=== PATIENT | female | born 1960 | race Caucasian/White ===

== ENCOUNTER 2024-07-07 10:34 | Emergency (ER) | payer OTHER ==
[2024-07-07 10:44] VITALS: BP 138/85; PULSE 121; RESP 18; TEMP 97
--- NOTE | 2024-07-07 10:58 | ED ---
Fall HPI - General Chief Complaint: Fall Stated Complaint: ETOH/fall/L eye bruise Time Seen by Provider: 07/07/24 10:45 Source: patient, RN notes reviewed Mode of arrival: wheelchair Limitations: no limitations - History of Present Illness Initial Comments: This is a 63-year-old female who presents to the emergency department for a fall. Patient states that she consumes about a pint of vodka daily. Most recently consumed alcohol this morning. States that yesterday she fell and landed face first on the ground, causing a black eye on the left. She went to check into rehab at [place] today, however they would not let her check-in until she was medically cleared from the fall. Denies any loss of consciousness during the fall. Not taking any blood thinners. She is also concerned about her psoriasis on the bilateral upper and lower extremities which are both itchy and painful. Not currently taking any medication for it. MD Complaint: fall - Related Data Previous Rx's Medication Instructions Recorded Amoxic-Pot Clav 875-125Mg 1 tab PO Q12HR 7 Days #14 tab 07/07/24 [Augmentin 875-125] Amoxic-Pot Clav 875-125Mg 1 tab PO Q12HR 7 Days #14 tab 07/07/24 [Augmentin 875-125] Allergies Allergy/AdvReac Type Severity Reaction Status Date / Time No Known Allergies Allergy Verified 07/07/24 10:38 Review of Systems ROS Statement: Those systems with pertinent positive or pertinent negative responses have been documented in the HPI. ROS Other: All systems not noted in ROS Statement are negative. Past Medical History Past Medical History: COPD Additional Past Medical History / Comment(s): alcoholism History of Any Multi-Drug Resistant Organisms: None Reported Past Surgical History: Section, Hysterectomy Past Psychological History: Anxiety Smoking Status: Former smoker Past Alcohol Use History: Abuse, Daily Past Drug Use History: None Reported General Exam Limitations: no limitations General appearance: alert, in no apparent distress Eye exam: Present: PERRL, EOMI, other (Left periorbital swelling and ecchymosis with subconjunctival hemorrhage) Respiratory exam: Present: normal lung sounds bilaterally. Absent: respiratory distress, wheezes, rales, rhonchi, stridor Cardiovascular Exam: Present: regular rate, normal rhythm, normal heart sounds. Absent: systolic murmur, diastolic murmur, rubs, gallop, clicks Neurological exam: Present: alert, oriented X3, CN II-XII intact Psychiatric exam: Present: normal affect, normal mood Skin exam: Present: other (Crusting and scaling on the bilateral upper and lower extremities) Course Vital Signs 07/07/24 10:39 Temperature 97 F L Pulse Rate 121 H Respiratory 18 Rate Blood Pressure 138/85 O2 Sat by Pulse 93 L Oximetry Medical Decision Making - Medical Decision Making This is a 63-year-old female who presents to the emergency department for a fall. Was pt. sent in by a medical professional or institution? @ -No Did you speak to anyone other than the patient for history? @ -No Did you review nursing and triage notes? @ -Yes, and I agree, it is accurate with regards to the patient's symptoms. Were old charts reviewed? @ -No Differential Diagnosis? @ -Differential Diagnosis Head Injury: Contusion, hematoma, intracranial hemorrhage, skull fracture, whiplash, concussion, this is not meant to be an all-inclusive list. EKG interpreted by me (3pts min.)? @ -Not obtained X-rays interpreted by me (1pt min.)? @ -Not obtained CT interpreted by me (1pt min.)? @ -Computed tomography scan of the brain and c-spine obtained. My interpretation identifies no evidence of an acute intracranial hemorrhage, skull fracture, or cervical spine fracture. CT scan of the facial bones obtained. My interpretation identifies a left inferior blowout fracture. U/S interpreted by me (1pt. min.)? @ -Not obtained What testing was considered but not performed? (CT, X-rays, U/S, labs)? Why? @ -None What meds were considered but not given? Why? @ -None Did you discuss the management of the patient with other professionals? @ -No Did you reconcile home meds? @ -No Was smoking cessation discussed for >3mins.? @ -No Was critical care preformed (if so, how long)? @ -No Were there social determinants of health that impacted care today? How? (Homelessness, low income, unemployed, alcoholism, drug addiction, transportation, low edu. Level, literacy, decrease access to med. care, [facility], rehab)? @ -Alcoholism, leading to the fall, which is her reason for the visit today. Was there de-escalation of care discussed even if they declined? (Discuss DNR or withdrawal of care, Hospice)? @ -No What co-morbidities impacted this encounter? (DM, HTN, Smoking, COPD, CAD, Cancer, CVA, Hep., AIDS, mental health diagnosis, sleep apnea, morbid obesity)? @ -Alcoholism Was patient admitted / discharged? @ -Discharged. CT scan of the brain and C-spine obtained revealing no acute intracranial process or signs of a cervical spine fracture. CT scan of the faci al bones demonstrates an acute left inferior blowout fracture with blood products and gas in the left maxillary sinus. There is no evidence of inferior rectus muscle entrapment. Patient's extraocular movements are intact. The only problem she has with seeing is if the swelling covers the eye. Otherwise, vision is intact. Tetanus vaccine is up-to-date. Prescription for Augmentin provided for infectious prophylaxis. Advised ibuprofen and Tylenol as needed for pain relief. Information for ophthalmology follow-up provided as well. Patient discharged home in stable condition. Case discussed with ED attending Dr. Jameson. Return precautions reviewed in depth, the patient is instructed to return to the emergency department with any new, worsening, or concerning symptoms. Patient verbalized understanding. Undiagnosed new problem with uncertain prognosis? @ -None Drug Therapy requiring intensive monitoring for toxicity (Heparin, Nitro, Insulin, Cardizem)? @ -None Were any procedures done? @ -None Diagnosis/symptom? @ -Fall, left orbital blowout fracture Acute, or Chronic, or Acute on Chronic? @ -Acute Uncomplicated (without systemic symptoms) or Complicated (systemic symptoms)? @ -Uncomplicated Side effects of treatment? @ -None Exacerbation, Progression, or Severe Exacerbation] @ -Not applicable Poses a threat to life or bodily function? @ -No - Radiology Data Radiology results: report reviewed, image reviewed Disposition Clinical Impression: Fall, Blow-out fracture of orbital floor Disposition: HOME SELF-CARE Instructions (If sedation given, give patient instructions): Facial Fracture (ED) Additional Instructions: Return to the emergency department with any new, worsening, or concerning symptoms. Take the antibiotic as prescribed for 7 days. Alternate with ibuprofen and Tylenol as needed for pain relief. You will need to follow-up with the [facility] listed below in the next 3 to 10 days. Prescriptions: Amoxic-Pot Clav 875-125Mg [Augmentin 875-125] 1 tab PO Q12HR 7 Days #14 tab Amoxic-Pot Clav 875-125Mg [Augmentin 875-125] 1 tab PO Q12HR 7 Days #14 tab Is patient prescribed a controlled substance at d/c from ED?: No Referrals: None,Stated [Primary Care Provider] - 1-2 days Haider Cerna MD [STAFF PHYSICIAN] - 1-2 days Derek Interiano MD [STAFF PHYSICIAN] - 1-2 days Time of Disposition: 12:14
[2024-07-07] MEDS: ACETAMINOPHEN TAB 500 MG TAB PO STA (11:09)
[2024-07-07] MEDS: KETOROLAC 15 MG/ML 1 ML VIAL IM STA ×2 (11:11→12:35)
[2024-07-07] MEDS: TRIAMCINOLONE ACET 0.5% CREAM 15 GM TUBE TOPICAL STA (11:29)
--- NOTE | 2024-07-07 11:50 | CT ---
EXAMINATION TYPE: CT brain cspine wo con, CT facial bones wo con CT DLP: 1060.6 mGycm, Automated exposure control for dose reduction was used. DATE OF EXAM: 07/07/2024 11:30 AM COMPARISON: None. CLINICAL INDICATION:Female, 63 years old with history of Head injury; Fall TECHNIQUE: Brain: Multiple axial CT images of the brain were obtained without IV contrast. Cspine: Axial CT images from the skull base to the inferior aspect of T2 we obtained without intraven ous contrast. Coronal and sagittal reformatted images were also reviewed. Facial bones; axial CT images of the facial bones were obtained without contrast and soft tissue and bone windows. Coronal and sagittal reformatted images were also reviewed. FINDINGS: Brain: Extra-axial spaces: No abnormal extra-axial fluid collections. Ventricular system: Within normal limits Cerebral parenchyma: No acute intraparenchymal hemorrhage or mass effect. The greenberg-white junction is well differentiated. Scattered hypoattenuating areas are seen within the periventricular white matte r. Cerebellum: Unremarkable. Mass effect: No evidence of midline shift. Intracranial vasculature: unremarkable Soft tissues: Normal. Calvarium/osseous structures: No depressed skull fracture. Paranasal sinuses and mastoid air cells: The mastoid air cells are clear. Please refer to CT facial b ones for findings. Visualized orbits: Orbital contents are intact. Cervical spine: Fracture: None. Osseous structures: Multilevel degenerative disc disease changes with endplate spurring and disc oste ophyte complex's. Vertebral alignment: Within normal limits. Spinal canal/Neural Foramina: Disc osteophyte complexes at C5-C6 and C6-C7 with at least mild spinal canal stenosis. Facet joint uncovertebral joint arthropathy scattered throughout the cervical spine w ith varying degrees of neural foraminal stenosis. Neck soft tissues: Prevertebral soft tissues are within normal limits. Other: The airway is patent. Advanced COPD changes. Facial Bones: Acute left inferior orbital blowout fracture with approximately 5 mm of depression of the fracture fr agment into the maxillary sinus. The left maxillary sinus is filled with blood products and gas. Cristela ining paranasal sinuses are clear. The orbital contents are intact. Retrobulbar fat is clear no evide nce of inferior rectus muscle entrapment. Nasal septal deviation to the right. Mild left periorbital and cheek soft tissue contusion. The temporal-mandibular joints appear symmetric. IMPRESSION: 1. No acute intracranial process. 2. Nonspecific white matter changes, likely secondary to chronic small vessel ischemic disease. 3. Acute left inferior blowout fracture with blood products and gas within the left maxillary sinus. Surrounding left periorbital and cheek soft tissue contusion. 4. No evidence of cervical spine fracture. 5. Mild multilevel degenerative disc disease. [facility], , 07/07/2024 11:47 AM
== END 2024-07-07 13:30 | disposition home or self-care (01) ==
LOC: EC 10:34
CPT/HCPCS: 70450; 70486; 72125; 96372; 99284